=== PATIENT | female | born 1980 | race Two or more races ===

== ENCOUNTER 2020-06-21 00:09 | Emergency (ER) | payer OTHER ==
[~2020-06-21] VITALS: Ht 152.4 cm; Wt 63.5 kg
[2020-06-21 00:09] VITALS: BP 130/71
[2020-06-21] MEDS ORDERED: HYDROcodone-ACET 5/325MG TAB PO ONE (00:30)
[2020-06-21] MEDS ORDERED: ONDANSETRON ODT 4 MG TAB PO ONE (02:15)
== END 2020-06-21 02:36 | disposition home or self-care (01) ==
LOC: ER 00:09
DX: S52.552A Other extraarticular fracture of lower end of left radius, initial encounter for closed fracture (principal); S52.612A Displaced fracture of left ulna styloid process, initial encounter for closed fracture; Z98.890 Other specified postprocedural states; W01.0XXA Fall on same level from slipping, tripping and stumbling without subsequent striking against object, initial encounter; Y93.89 Activity, other specified; Y92.89 Other specified places as the place of occurrence of the external cause; Y99.8 Other external cause status
CPT/HCPCS: 29125; 73060; 73090; 73110; 99284; Q0162

== ENCOUNTER 2022-02-18 00:53 | Emergency (ER) | payer OTHER ==
[~2022-02-18] VITALS: Ht 167.6 cm; Wt 70.0 kg
[2022-02-18 00:53] VITALS: BP 106/77
[2022-02-18] MEDS ORDERED: ONDANSETRON ODT 4 MG TAB PO ONE (01:15)
[2022-02-18] MEDS ORDERED: OXYCODONE W/ ACETAMINOPHEN 5/325MG TABLET PO ONE (01:15)
[2022-02-19] MEDS ORDERED: PERCOT PO (01:35)
[2022-02-19] MEDS ORDERED: ONDA-144 PO (01:35)
== END 2022-02-18 04:12 | disposition left against medical advice (07) ==
LOC: EDBD 00:53 → ER 00:55
DX: S16.1XXA Strain of muscle, fascia and tendon at neck level, initial encounter (principal); G44.309 Post-traumatic headache, unspecified, not intractable; Z98.890 Other specified postprocedural states; Y08.89XA Assault by other specified means, initial encounter; Y93.89 Activity, other specified; Y92.89 Other specified places as the place of occurrence of the external cause; Y99.8 Other external cause status
CPT/HCPCS: 70450; 70486; 71250; 72125; 73030; 74176; 99284; Q0162

== ENCOUNTER 2022-02-18 19:35 | Emergency (ER) | payer OTHER ==
[~2022-02-18] VITALS: Ht 149.9 cm; Wt 63.6 kg
[2022-02-18] MEDS ORDERED: SODIUM CHLORIDE 0.9% 1,000 ML IV ONE (22:30)
[2022-02-18] MEDS ORDERED: ONDANSETRON HCL 4 MG/2 ML VIAL IV ONE (22:30)
[2022-02-18] MEDS ORDERED: HYDROmorphone HCL 2 MG/ML VL/or syr IV ONE (22:30)
[2022-02-19] MEDS ORDERED: ONDA-144 PO (01:35)
[2022-02-19] MEDS ORDERED: PERCOT PO (01:35)
[2022-02-19 02:35] VITALS: BP 128/63
== END 2022-02-19 03:09 | disposition home or self-care (01) ==
LOC: ER 19:35
DX: S46.912A Strain of unspecified muscle, fascia and tendon at shoulder and upper arm level, left arm, initial encounter (principal); S40.012A Contusion of left shoulder, initial encounter; Z88.0 Allergy status to penicillin; Z98.890 Other specified postprocedural states; Y08.89XA Assault by other specified means, initial encounter; Y93.89 Activity, other specified; Y92.89 Other specified places as the place of occurrence of the external cause; Y99.8 Other external cause status
CPT/HCPCS: 73200; 96361; 96374; 96375; 99284; J1170; J7030